=== PATIENT | female | born 2000 | race Two or more races ===

== ENCOUNTER 2023-01-18 15:54 | Emergency (ER) | payer MEDICAID, OTHER ==
[~2023-01-18] VITALS: Ht 152.4 cm; Wt 58.1 kg
[2023-01-18 16:05] VITALS: BP 124/91
[2023-01-18] MEDS ORDERED: METH-1181 PO (17:59)
[2023-01-18] MEDS ORDERED: IBUP-1454 PO (17:59)
== END 2023-01-18 18:03 | disposition home or self-care (01) ==
LOC: ER 15:54
DX: S16.1XXA Strain of muscle, fascia and tendon at neck level, initial encounter (principal); V43.52XA Car driver injured in collision with other type car in traffic accident, initial encounter; Y93.89 Activity, other specified; Y92.89 Other specified places as the place of occurrence of the external cause; Y99.8 Other external cause status
CPT/HCPCS: 72040